=== PATIENT | female | born 1930 | race Caucasian/White ===

== ENCOUNTER → 2016-08-01 | Outpatient (CLI) | payer MEDICARE ==
[~2016-08-01] MED LIST: DOXA1 PO; DOXA1TAB35 PO; EYECAP; FERR325T PO; HYDR-3516 PO; LISI40TA PO; MEGE20TA PO; METO50TA PO; PRESCAP5 PO; RIVA15 PO; SIMV80TA PO; ZOCO80TA PO
[2016-08-01 13:10] LABS: BACTERIA, URINE RARE /hpf; BLOOD, URINE NEG (NEG); GLUCOSE,URINE NEG (NEG); HEMATOCRIT 24.8 % (35.0-46.0); KETONE, URINE NEG (NEG); MEAN CELL VOLUME 82.4 FL (80.0-100.0); MEAN CORPUSCULAR HEMOGLOBIN 28.4 PG (27.0-34.0); MEAN CORPUSCULAR HGB CONC 34.4 % (32.0-36.0); MUCUS URINE FEW /lpf (OCC); NITRITE,URINE NEG (NEG); PLATELET COUNT 263 TH/MM3 (150-450); RED BLOOD COUNT 3.01 MIL/MM3 (4.00-5.30); RED CELL DISTRIBUTION WIDTH 16.3 % (11.6-17.2); REVIEW FLAG FINAL; SQUAMOUS EPITHELIAL CELL URINE 5 /hpf (0-5); TRANSITIONAL EPI CELLS, URINE 1 /hpf; URINE COLOR COLORLESS (YELLW/STRAW); WHITE BLOOD COUNT 6.5 TH/MM3 (4.0-11.0)
[2016-08-01 13:19] LABS: MICRO ALBUMIN RANDOM URINE RAW 6.8 MG/L (0.0-30.0)
[2016-08-01 13:50] LABS: BLOOD UREA NITROGEN 15 MG/DL (7-18); GLOMERULAR FILTRATION RATE 60 ML/MIN (>89); GLUCOSE,FASTING 133 MG/DL (74-99)
[2016-08-01 13:51] LABS: ALT (GPT) 11 U/L (10-53); ANION GAP 9 MEQ/L (5-15); AST (GOT) 12 U/L (15-37); BICARBONATE 24.2 MEQ/L (21.0-32.0); CHLORIDE 103 MEQ/L (98-107); POTASSIUM 4.5 MEQ/L (3.5-5.1); SODIUM (NA) 136 MEQ/L (136-145)
[2016-08-01 14:00] LABS: ALKALINE PHOSPHATASE 81 U/L (45-117); HDL CHOLESTEROL 50.6 MG/DL (40.0-60.0); LDL CHOLESTEROL 37 MG/DL (0-99); LDL CHOLESTEROL DIRECT 58 MG/DL (0-99); TOTAL BILIRUBIN ADULT 0.3 MG/DL (0.2-1.0)
[2016-08-01 16:17] LABS: HEMOGLOBIN A1a 0.7 %; HEMOGLOBIN A1b 0.8 %; HEMOGLOBIN Ao 84.8 %; HEMOGLOBIN F 0.9 %; HEMOGLOBIN LA1C 2.1 %; HEMOGLOBIN P3 3.9 %
== END ==
LOC: PLAB 07:51
PROVIDERS: ATTEND Family Medicine
DX: E11.9 Type 2 diabetes mellitus without complications (principal); E78.2 Mixed hyperlipidemia; I10 Essential (primary) hypertension; I65.29 Occlusion and stenosis of unspecified carotid artery; R73.01 Impaired fasting glucose; R53.83 Other fatigue
CPT/HCPCS: 36415; 80053; 80061; 81001; 82043; 83036; 83721; 84443; 85027

== ENCOUNTER 2016-08-07 14:08 | Inpatient (IN) | payer MEDICARE ==
[2016-08-07] VITALS (7 sets, daily range): BP systolic 93–131; BP diastolic 50–79; PULSE 77–102; RESP 16–20; TEMP 97.4–98.6; O2SAT 93–100
[~2016-08-07] VITALS: Ht 162.6 cm; Wt 80.7 kg
[~2016-08-07 14:08] MED LIST changes: -DOXA1TAB35 PO; -FERR325T PO; -HYDR-3516 PO; -MEGE20TA PO; -PRESCAP5 PO; -SIMV80TA PO
[2016-08-07] MEDS ORDERED: SODIUM CHLORIDE 0.9% FLUSH 5 ML FLUSH IVF PRN (14:30)
[2016-08-07] MEDS ORDERED: PANTOPRAZOLE INJ 80 MG in SODIUM CHLORIDE 0.9% INJ 35 ML IV ONE (14:30)
--- NOTE | 2016-08-07 14:32 | PD ---
HPI Chief Complaint: Abnormal Results Time Seen by Provider: 14:21 Travel History International Travel<30 days: No Contact w/Intl Traveler<30days: No Traveled to known affect area: No History of Present Illness HPI This is an 85-year-old female who presents to the emergency department with fatigue and generalized weakness that's been going on for several weeks, constant, worsening associated with difficulty with exertion and some shortness of breath. Her doctor noticed that she was pale and obtained outpatient labs. Her hemoglobin was 8.5. She does say she intermittently has some dark stools. She is not on any blood thinners. She had a colonoscopy 20 years ago. PFSH Past Medical History Cancer: Yes (MELANOMA RIGHT HEEL, LUNG CA) Cardiovascular Problems: No Diabetes: Yes (NO MEDS) Endocrine: No Genitourinary: No Hepatitis: No Hiatal Hernia: No Hypertension: Yes Immune Disorder: No Musculoskeletal: Yes (ARTHRITIS) Neurologic: Yes (NECK PAIN) Psychiatric: No Reproductive: No Respiratory: No Thyroid Disease: No Past Surgical History Abdominal Surgery: Yes (CHOLECYCTECTOMY, APPENDECTOMY) AICD: No Appendectomy: Yes Body Medical Devices: NECK HARDWARE Gynecologic Surgery: Yes (HYSTERECTOMY) Hysterectomy: Yes Joint Replacement: No Pacemaker: No Other Surgery: Yes (SKIN CA REMOVED) Social History Alcohol Use: No Tobacco Use: No (QUIT 28 YEARS AGO ) Substance Use: No Allergies-Medications (Allergen,Severity, Reaction): Coded Allergies: Lortab (Verified Allergy, Severe, NAUSEA/VOMITING, 08/07/16) Penicillin (Verified Allergy, Severe, Hives, 08/07/16) Sulfa (Verified Allergy, Severe, Itching, 08/07/16) Benadryl (Verified Allergy, Unknown, "I JUST FEEL WEIRD", 08/07/16) Reported Meds & Prescriptions Reported Meds & Active Scripts Active Reported Preservision Areds 2 (Multiple Vitamins W/ Minerals) 1 Cap 1 Cap PO BID Simvastatin 80 Mg Tab 80 Mg PO DAILY Metoprolol Tartrate 50 Mg Tab 50 Mg PO DAILY Lisinopril 40 Mg Tab 40 Mg PO BID Doxazosin (Doxazosin Mesylate) 2 Mg Tab 2 Mg PO BID Review of Systems Except as stated in HPI: all other systems reviewed are Neg Physical Exam Narrative GENERAL:Well appearing, no acute distress SKIN: Warm and dry. HEAD: Atraumatic. Normocephalic. EYES: Pupils equal and round. No injection or drainage. Pale sclera. ENT: Moist mucous membranes NECK: Trachea midline. CARDIOVASCULAR: Regular rate and rhythm. No murmur appreciated. RESPIRATORY: Clear to auscultation. Breath sounds equal bilaterally. GASTROINTESTINAL: Abdomen soft, non-tender, nondistended. MUSCULOSKELETAL: No obvious deformities. NEUROLOGICAL: Awake and alert. No obvious cranial nerve deficits. Moving all extremities. PSYCHIATRIC: Appropriate mood and affect; insight and judgment normal. Data Data Last Documented VS Vital Signs Date Time Temp Pulse Resp B/P Pulse Ox O2 Delivery O2 Flow Rate FiO2 08/07/16 14:38 131/69 08/07/16 14:37 98 Room Air 08/07/16 14:33 89 08/07/16 14:12 97.4 16 Orders Complete Blood Count With Diff (08/07/16 14:30) Comprehensive Metabolic Panel (08/07/16 14:30) Prothrombin Time / Inr (Pt) (08/07/16 14:30) Act Partial Throm Time (Ptt) (08/07/16 14:30) Type And Screen (08/07/16 14:30) Ecg Monitoring (08/07/16 14:30) Iv Access Insert/Monitor (08/07/16 14:30) Oximetry (08/07/16 14:30) Sodium Chloride 0.9% Flush (Ns Flush) (08/07/16 14:30) Pantoprazole Inj (Protonix Inj) (08/07/16 14:30) Pantoprazole Inj (Protonix Inj) (08/07/16 14:30) Labs Laboratory Tests Test 08/07/16 14:40 White Blood Count 8.4 TH/MM3 Red Blood Count 2.72 MIL/MM3 Hemoglobin 7.4 GM/DL Hematocrit 22.8 % Mean Corpuscular Volume 83.9 FL Mean Corpuscular Hemoglobin 27.2 PG Mean Corpuscular Hemoglobin 32.4 % Concent Red Cell Distribution Width 17.2 % Platelet Count 316 TH/MM3 Mean Platelet Volume 6.4 FL Neutrophils (%) (Auto) 77.5 % Lymphocytes (%) (Auto) 14.2 % Monocytes (%) (Auto) 5.1 % Eosinophils (%) (Auto) 1.0 % Basophils (%) (Auto) 2.2 % Neutrophils # (Auto) 6.5 TH/MM3 Lymphocytes # (Auto) 1.2 TH/MM3 Monocytes # (Auto) 0.4 TH/MM3 Eosinophils # (Auto) 0.1 TH/MM3 Basophils # (Auto) 0.2 TH/MM3 CBC Comment DIFF FINAL Differential Comment Prothrombin Time 10.5 SEC Prothromb Time International 1.0 RATIO Ratio Activated Partial 28.8 SEC Thromboplast Time Sodium Level 137 MEQ/L Potassium Level 4.7 MEQ/L Chloride Level 101 MEQ/L Carbon Dioxide Level 25.9 MEQ/L Anion Gap 10 MEQ/L Blood Urea Nitrogen 24 MG/DL Creatinine 0.92 MG/DL Estimat Glomerular Filtration 58 ML/MIN Rate Random Glucose 133 MG/DL Calcium Level 8.8 MG/DL Total Bilirubin 0.4 MG/DL Aspartate Amino Transf 11 U/L (AST/SGOT) Alanine Aminotransferase 13 U/L (ALT/SGPT) Alkaline Phosphatase 90 U/L Total Protein 7.2 GM/DL Albumin 3.1 GM/DL MDM Medical Decision Making Medical Screen Exam Complete: Yes Emergency Medical Condition: Yes Interpretation(s) Afebrile, no tachycardia, normotensive Hemoglobin is 7.4 Electrolytes are reassuring Differential Diagnosis Upper GI bleed, lower GI bleed, anemia Narrative Course This is an 85-year-old female who presents to the emergency department with generalized weakness found by her primary care physician to have a hemoglobin of 8.5. Here in the emergency department her hemoglobin is 7.4. She is placed on a monitor and an IV was established. Electrolytes are reassuring. She was Hemoccult positive. She is not on any blood thinners. Was placed on pantoprazole infusion and will be admitted for GI consultation. HemaPrompt Point of Care Internal Pos. & Neg. Controls: Passed Fecal Specimen Occult Blood: Positive Diagnosis Primary Impression: GI bleed Qualified Code: K92.2 - Gastrointestinal hemorrhage, unspecified gastrointestinal hemorrhage type Admitting Information Admitting Physician Requests: Admit Lizette Alvarez MD Aug 07, 2016 14:32
[2016-08-07] MEDS ORDERED: METO50TA PO (14:40)
[2016-08-07] MEDS ORDERED: LISI40TA PO (14:40)
[2016-08-07] MEDS ORDERED: PRESCAP5 PO (14:40)
[2016-08-07] MEDS ORDERED: DOXA1TAB35 PO (14:40)
[2016-08-07] MEDS ORDERED: SIMV80TA PO (14:40)
[2016-08-07 14:55] LABS: AUTOMATED NEUTROPHIL # 6.5 TH/MM3 (1.8-7.7); BASOPHIL # 0.2 TH/MM3 (0-0.2); BASOPHIL % 2.2 % (0.0-2.0); EOSINOPHIL # 0.1 TH/MM3 (0-0.4); HEMATOCRIT 22.8 % (35.0-46.0); LYMPH % 14.2 % (9.0-44.0); LYMPHOCYTE # 1.2 TH/MM3 (1.0-4.8); MEAN CELL VOLUME 83.9 FL (80.0-100.0); MEAN CORPUSCULAR HEMOGLOBIN 27.2 PG (27.0-34.0); MEAN CORPUSCULAR HGB CONC 32.4 % (32.0-36.0); MONO % 5.1 % (0.0-8.0); NEUT % 77.5 % (16.0-70.0); PLATELET COUNT 316 TH/MM3 (150-450); RED BLOOD COUNT 2.72 MIL/MM3 (4.00-5.30); RED CELL DISTRIBUTION WIDTH 17.2 % (11.6-17.2); WHITE BLOOD COUNT 8.4 TH/MM3 (4.0-11.0)
[2016-08-07 14:57] LABS: HEMO FLAGS DIFF FINAL
[2016-08-07 14:58] LABS: CHLORIDE 101 MEQ/L (98-107); POTASSIUM 4.7 MEQ/L (3.5-5.1); SODIUM (NA) 137 MEQ/L (136-145)
[2016-08-07 15:02] LABS: ANION GAP 10 MEQ/L (5-15); BICARBONATE 25.9 MEQ/L (21.0-32.0); BLOOD UREA NITROGEN 24 MG/DL (7-18)
[2016-08-07 15:03] LABS: APTT (PATIENT) 28.8 SEC (24.3-30.1); PROTHROMBIN TIME - PATIENT 10.5 SEC (9.8-11.6)
[2016-08-07 15:05] LABS: ALT (GPT) 13 U/L (10-53); AST (GOT) 11 U/L (15-37); GLOMERULAR FILTRATION RATE 58 ML/MIN (>89)
[2016-08-07 15:07] LABS: TOTAL BILIRUBIN ADULT 0.4 MG/DL (0.2-1.0)
[2016-08-07 15:08] LABS: ALKALINE PHOSPHATASE 90 U/L (45-117)
[2016-08-07] MEDS: PANTOPRAZOLE INJ 80 MG in SODIUM CHLORIDE 0.9% INJ 100 ML IV SCH ×2 (15:23→23:58)
[2016-08-07] MEDS ORDERED: SODIUM CHLOR 0.9% 250 ML INJ 250 ML IV ONE (15:45)
[2016-08-07] MEDS ORDERED: ONDANSETRON HCL 4 MG/2 ML VIAL IVP PRN (15:45)
[2016-08-07] MEDS ORDERED: SODIUM CHLORIDE 0.9% FLUSH 5 ML FLUSH FLUSH PRN (15:45)
--- NOTE | 2016-08-07 16:24 | HHI.HP ---
cc: John Coyne MD [facility] Service [facility] Primary Care Physician John Coyne MD Admission Diagnosis gi bleed Diagnoses: (1) Blood loss anemia Diagnosis: Principal (2) Heme positive stool Diagnosis: Principal (3) Melena Diagnosis: Principal (4) Hypertension Diagnosis: Secondary (5) Hyperlipidemia Diagnosis: Secondary Chief Complaint: Patient sent here by primary medical doctor because of abnormal laboratory studies Travel History International Travel<30 Days: No Contact w/Intl Traveler <30 Da: No Traveled to Known Affected Are: No History of Present Illness 85-year-old female with known history of hypertension, hyperlipidemia , history lung cancer, history of melanoma, history DVT in the right lower extremity presented to the hospital at the request of her primary medical doctor Dr. Coyne because abnormal laboratory studies. Patient went in for her three-month evaluation and laboratory studies. Patient was notified by her primary medical doctor that her hemoglobin was low so he sent her to the hospital for evaluation. Patient indicates that she has had increased weakness , shortness of breath, dyspnea on exertion for the last 2 weeks with worsening. She noticed a week ago she started having dark color stools. Patient states that she has not had a colonoscopy in over 5 years. Patient had workup done in noticed to have hemoglobin of 7.4 MRSA department. Hemoccult was performed which is positive. Recommended by ER physician the patient be admitted for further evaluation management. Review of Systems Constitutional: DENIES: Diaphoretic episodes, Fatigue, Fever, Weight gain, Weight loss, Chills, Dizziness, Change in appetite, Night Sweats Eyes: DENIES: Blurred vision, Diplopia, Eye inflammation, Eye pain, Vision loss , Double Vision Ears, nose, mouth, throat: COMPLAINS OF: Hoarseness, DENIES: Vertigo, Nasal discharge, Throat pain, Ear Pain, Running Nose, Sinus Pain Cardiovascular: COMPLAINS OF: Lower Extremity Edema (chronic right lower extremity), DENIES: Chest pain, Palpitations, Syncope, Dyspnea on Exertion, Orthopnea Gastrointestinal: COMPLAINS OF: Black stools, DENIES: Abdominal pain, Bloody stools, Constipation, Diarrhea, Nausea, Vomiting, Difficulty Swallowing, Anorexia Neurologic: DENIES: Abnormal gait, Headache, Localized weakness, Paresthesias, Seizures, Speech Problems, Tremor, Poor Balance Past Family Social History Past Medical History Hypertension Hyperlipidemia History of lung cancer History melanoma History DVT in right lower extremity Past Surgical History Appendectomy Hysterectomy Cataract surgery Cervical fusion Left lower lung lobectomy Right heel melanoma removal Lymph node removal from right groin Reported Medications Reported Meds & Active Scripts Active Reported Preservision Areds 2 (Multiple Vitamins W/ Minerals) 1 Cap 1 Cap PO BID Simvastatin 80 Mg Tab 80 Mg PO DAILY Metoprolol Tartrate 50 Mg Tab 50 Mg PO DAILY Lisinopril 40 Mg Tab 40 Mg PO BID Doxazosin (Doxazosin Mesylate) 2 Mg Tab 2 Mg PO BID Allergies: Coded Allergies: Lortab (Verified Allergy, Severe, NAUSEA/VOMITING, 08/07/16) Penicillin (Verified Allergy, Severe, Hives, 08/07/16) Sulfa (Verified Allergy, Severe, Itching, 08/07/16) Benadryl (Verified Allergy, Unknown, "I JUST FEEL WEIRD", 08/07/16) Family History Prevention if you for mother having diabetes, Brothers with heart disease Social History Patient denies any tobacco or illicit drugs. She does drink May be one beer whenever she has pizza every 3 months. Physical Exam Vital Signs Vital Signs Date Time Temp Pulse Resp B/P Pulse Ox O2 Delivery O2 Flow Rate FiO2 08/07/16 15:44 88 17 119/60 93 Room Air 08/07/16 14:38 131/69 08/07/16 14:37 98 Room Air 08/07/16 14:33 89 89 Room Air 08/07/16 14:12 97.4 90 16 93/50 99 Physical Exam GENERAL: Well-developed, well-nourished, in no acute distress. alert and orientated HEENT: Head is normocephalic without any lesions or masses noted. Facial features are symmetric. Eyes: Pupils equal round reactive to light. Extraocular muscles are intact. Conjunctivae were clear. Oropharyngeal: Pharynx without any erythema edema. Tongue is midline without deviation. Buccal mucosa is moist without any masses or lesions NECK: Supple without any masses. Trachea midline no deviation. No JVD, no bruits are appreciated CARDIAC: Regular rhythm, regular rate. S1/S2 are heard. No murmurs gallops or rubs. LUNGS: Clear to auscultation bilaterally. No wheeze, rhonchi or rales. No use of accessory muscles on inspiration or expiration. ABDOMEN: Soft, nontender. Nondistended. Bowel sounds heard in all 4 quadrants. No organomegaly or masses. Negative rebound, negative guarding EXTREMITIES: 1+ pitting edema right lower extremity, pulses are equal bilaterally. No cyanosis or clubbing NEUROLOGY: Mood and affect appear appropriate. Cranial nerves II through XII grossly intact. Muscle strength 5/5 in upper and lower extremities bilaterally. Deep tendon reflexes are 2+ in upper and lower extremities bilaterally. Laboratory Laboratory Tests Test 08/07/16 14:40 White Blood Count 8.4 Red Blood Count 2.72 Hemoglobin 7.4 Hematocrit 22.8 Mean Corpuscular Volume 83.9 Mean Corpuscular Hemoglobin 27.2 Mean Corpuscular Hemoglobin 32.4 Concent Red Cell Distribution Width 17.2 Platelet Count 316 Mean Platelet Volume 6.4 Neutrophils (%) (Auto) 77.5 Lymphocytes (%) (Auto) 14.2 Monocytes (%) (Auto) 5.1 Eosinophils (%) (Auto) 1.0 Basophils (%) (Auto) 2.2 Neutrophils # (Auto) 6.5 Lymphocytes # (Auto) 1.2 Monocytes # (Auto) 0.4 Eosinophils # (Auto) 0.1 Basophils # (Auto) 0.2 CBC Comment DIFF FINAL Differential Comment Prothrombin Time 10.5 Prothromb Time International 1.0 Ratio Activated Partial 28.8 Thromboplast Time Sodium Level 137 Potassium Level 4.7 Chloride Level 101 Carbon Dioxide Level 25.9 Anion Gap 10 Blood Urea Nitrogen 24 Creatinine 0.92 Estimat Glomerular Filtration 58 Rate Random Glucose 133 Calcium Level 8.8 Total Bilirubin 0.4 Aspartate Amino Transf 11 (AST/SGOT) Alanine Aminotransferase 13 (ALT/SGPT) Alkaline Phosphatase 90 Total Protein 7.2 Albumin 3.1 Result Diagram: 08/08/16 0551 08/08/16 0551 Assessment and Plan Assessment and Plan Acute blood loss anemia with heme positive stool, symptomatic with shortness of breath, dyspnea, weakness Patient set up for transfusion 1 unit of packed red blood cells Continue Protonix IV Consulted GI for further recommendations. Recommending at this time prepping patient for panendoscopy. Hypertension, hyperlipidemia Continue follow blood pressure, mildly low at this time Resume medications with hold parameters. Diabetes, diet controlled Resume diabetic diet when cleared by GI DVT prevention Sequential compression devices, avoid chemical prophylaxis secondary to GI bleed Written by Terry Lim PA-C, acting as scribe for Dr. Powers on 08/07/16 at 1600. The documentation accurately reflects the work and decisions performed face-to- face by Dr. Powers on 08/07/16 at 1600. Physician Certification 2 Midnight Certification Type: Admission for Inpatient Services Order for Inpatient Services The services are ordered in accordance with Medicare regulations or non- Medicare payer requirements, as applicable. In the case of services not specified as inpatient-only, they are appropriately provided as inpatient services in accordance with the 2-midnight benchmark. Estimated LOS (days): 2 days is the estimated time the patient will need to remain in the hospital, assuming treatment plan goals are met and no additional complications. Post-Hospital Plan: Not yet determined Medical Decision Making Impression and Plan The exam, history, and the medical decision-making described in the above note were completed with my assistance as the dictating practitioner. I attest that I had a [id number] encounter with the patient on the same day, and personally performed all of the history, exam, or medical decision making. I reviewed and agree with the plan. Discussed with patient bedside and PATIENT ACCOUNT LIAISON and ER M.D. Problem Qualifiers (1) Hypertension: Qualified Code: I15.9 - Secondary hypertension (2) Hyperlipidemia: Qualified Code: E78.5 - Hyperlipidemia, unspecified hyperlipidemia type Terry Lim Aug 07, 2016 16:24 Latanya Powers MD Aug 08, 2016 09:10
[2016-08-07] MEDS ORDERED: PEG (High)/E-LYTE SOLN 4000 ML BTL PO ONE (17:00)
[2016-08-07] MEDS: SODIUM CHLOR 0.9% 1000 ML INJ 1,000 ML IV SCH (17:15)
[2016-08-07] MEDS: PRAVASTATIN SOD 40 MG TAB PO SCH (20:37)
[2016-08-07] MEDS: SODIUM CHLORIDE 0.9% FLUSH 5 ML FLUSH FLUSH SCH (20:37)
[2016-08-08] VITALS (7 sets, daily range): BP systolic 96–142; BP diastolic 53–117; PULSE 86–108; RESP 18–20; TEMP 97.7–98.7; O2SAT 97–100
[2016-08-08] MEDS: SODIUM CHLOR 0.9% 1000 ML INJ 1,000 ML IV SCH ×2 (05:46→18:26)
[2016-08-08 06:42] LABS: AUTOMATED NEUTROPHIL # 4.7 TH/MM3 (1.8-7.7); BASOPHIL % 0.2 % (0.0-2.0); EOSINOPHIL # 0.1 TH/MM3 (0-0.4); EOSINOPHIL % 0.9 % (0.0-4.0); HEMATOCRIT 22.1 % (35.0-46.0); HEMO FLAGS DIFF FINAL; LYMPH % 15.7 % (9.0-44.0); MEAN CELL VOLUME 83.2 FL (80.0-100.0); MEAN CORPUSCULAR HGB CONC 32.5 % (32.0-36.0); NEUT % 77.2 % (16.0-70.0); PLATELET COUNT 259 TH/MM3 (150-450); RED BLOOD COUNT 2.66 MIL/MM3 (4.00-5.30); RED CELL DISTRIBUTION WIDTH 15.8 % (11.6-17.2); WHITE BLOOD COUNT 6.2 TH/MM3 (4.0-11.0)
[2016-08-08 07:01] LABS: BICARBONATE 26.2 MEQ/L (21.0-32.0); POTASSIUM 3.8 MEQ/L (3.5-5.1)
[2016-08-08] MEDS ORDERED: PROPOFOL 200 MG/20 ML AMP IV ONE (07:20)
[2016-08-08] MEDS: LISINOPRIL 20 MG TAB PO SCH ×2 (09:40→21:00)
[2016-08-08] MEDS: SODIUM CHLORIDE 0.9% FLUSH 5 ML FLUSH FLUSH SCH ×2 (09:41→21:45)
[2016-08-08 12:13] LABS: HEMATOCRIT 22.1 % (35.0-46.0); REVIEW FLAG FINAL
[2016-08-08] MEDS ORDERED: FUROSEMIDE 20 MG/2 ML VIAL IV ONE (13:15)
[2016-08-08] MEDS ORDERED: ACETAMINOPHEN 325 MG TAB PO PRN (13:15)
[2016-08-08] MEDS ORDERED: SODIUM CHLOR 0.9% 250 ML INJ 250 ML IV ONE (13:15)
--- NOTE | 2016-08-08 14:00 | HHI.PR ---
Subjective Remarks Patient seen and evaluated in follow-up for anemia likely secondary to GI blood loss. Patient doing well today after endoscopy. Hemoglobin is still low after 1 unit packed red blood cells. Patient's symptoms however her greatly improved. She is no longer dizzy or lightheaded and does not feel fatigued. Objective Vitals Vital Signs Date Time Temp Pulse Resp B/P Pulse Ox O2 Delivery O2 Flow Rate FiO2 08/08/16 12:00 98.0 101 20 110/53 100 08/08/16 08:15 91 16 106/49 98 08/08/16 08:05 106/53 08/08/16 07:53 98.7 87 18 95/43 100 08/08/16 06:34 98.3 108 20 133/66 98 08/08/16 00:00 98.3 86 20 96/67 97 08/07/16 20:20 98.6 93 20 116/55 100 08/07/16 20:00 98.2 102 20 124/62 100 08/07/16 16:41 77 17 115/79 93 Room Air 08/07/16 15:44 88 17 119/60 93 Room Air 08/07/16 14:38 131/69 08/07/16 14:37 98 Room Air 08/07/16 14:33 89 89 Room Air 08/07/16 14:12 97.4 90 16 93/50 99 I/O 08/07/16 08/07/16 08/07/16 08/08/16 08/08/16 08/08/16 07:00 15:00 23:00 07:00 15:00 23:00 Intake Total 4575 ml 813 ml 300 ml Balance 4575 ml 813 ml 300 ml Intake Oral 2000 ml Oral Supplement 2000 ml IV Total 375 ml 714 ml Packed Cells 200 ml 99 ml Other 300 ml # Voids 4 2 # Bowel Movements 8 2 Result Diagram: 08/08/16 1150 08/08/16 0551 Objective Remarks GENERAL: This is a well-nourished, well-developed patient, in no apparent distress. CARDIOVASCULAR: Regular rate and rhythm without murmurs, gallops, or rubs. RESPIRATORY: Clear to auscultation. Breath sounds equal bilaterally. No wheezes , rales, or rhonchi. GASTROINTESTINAL: Abdomen soft, non-tender, nondistended. Normal active bowel sounds MUSCULOSKELETAL: Extremities without clubbing, cyanosis, or edema. NEURO: Alert & Oriented x4 to person, place, time, situation. Moves all ext x4 Procedures Upper and lower endoscopy: Biopsy, removal of polyp A/P Problem List: (1) Blood loss anemia ICD Code: D50.0 Status: Acute Plan: Likely acute GI losses, will need one more unit of packed red blood cells. Recheck in a.m. Status post upper and lower endoscopy with biopsy of a polyp. No further bleeding as per GI Advance diet (2) Hypertension ICD Code: I10 Status: Acute Plan: Currently controlled on home meds and a bit low (likely due to anemia). Lisinopril resumed, we'll start metoprolol tomorrow if patient tolerates (3) Hyperlipidemia ICD Code: E78.5 Status: Acute Plan: Continue statin Discharge Planning Pending hemoglobin likely discharge in a.m. Problem Qualifiers (1) Hypertension: Qualified Code: I15.9 - Secondary hypertension (2) Hyperlipidemia: Qualified Code: E78.5 - Hyperlipidemia, unspecified hyperlipidemia type Latanya Powers MD Aug 08, 2016 14:00
[2016-08-08] MEDS: PANTOPRAZOLE INJ 80 MG in SODIUM CHLORIDE 0.9% INJ 100 ML IV SCH ×2 (18:26→21:45)
--- NOTE | 2016-08-08 20:24 | MB ---
cc: ILDEFONSO ESPINOZA M.D. DATE OF CONSULTATION 08/08/2016 DATE OF 1930 REASON FOR CONSULTATION Anemia. HISTORY OF THE PRESENT ILLNESS Thank you for the consultation. A pleasant 85-year-old lady who has multiple medical issues. The patient was told by her primary care physician to go to the hospital because her hemoglobin was 7.4 on routine labs. The patient stated that she noticed some dark colored stool about a week ago and general weakness, some shortness of breath and dyspnea on exertion. She denied екатерина blood. No hematemesis. No hematochezia. She had colonoscopy at least four years ago, not sure what was the findings. She was sent to the emergency room because of that. Her symptom is not related to food and gradual. PAST MEDICAL HISTORY Significant for: 1. Hyperlipidemia. 2. History of lung cancer. 3. Melanoma. 4. DVT in the lower right lower extremity. 5. Hypertension. PAST SURGICAL HISTORY 1. Hysterectomy. 2. Cataract surgery. 3. Left lower lung lobectomy. 4. Appendectomy. 5. Cervical fusion. 6. Right heel melanoma removal. REVIEW OF SYSTEMS All 12-point negative except HPI. MEDICATIONS Reviewed in the chart. ALLERGIES MULTIPLE INCLUDING PENICILLIN, SULFA, BENADRYL, LORTAB. FAMILY HISTORY Significant for heart disease and diabetes. SOCIAL HISTORY No tobacco, drug or alcohol. PHYSICAL EXAMINATION GENERAL: Alert and oriented in no acute distress at this time. VITAL SIGNS: Stable. HEENT: Pupils round and reactive to light. NECK: Supple. CHEST: Clear to auscultation and percussion. CARDIOVASCULAR: Regular rate and rhythm. ABDOMEN: Soft. Nondistended. No hepatosplenomegaly. Positive bowel sounds. EXTREMITIES: +1 lower extremity edema. NEUROLOGICAL: Intact with normal range of motion. LABORATORY DATA White count 8.4, hemoglobin 7.4, platelet 316. Liver function test are normal. Albumin 3.1. ASSESSMENT/PLAN A pleasant 85-year-old lady who has anemia, could be acute on chronic with black stool but gradual increase of shortness of breath. Her last colonoscopy was 5 years ago. I discussed with the patient doing upper endoscopy and colonoscopy. We discussed the procedure, complications. She agreed to have it done. This will be done today. The patient received packed RBC and we will monitor her hemoglobin. Further plan depends on the findings on endoscopy. MD ABI Rivera /5:55 PM /8:13 PM
[2016-08-08] MEDS: DOXAZOSIN MESYLATE 2 MG TAB PO SCH (21:00)
[2016-08-08] MEDS: PRAVASTATIN SOD 40 MG TAB PO SCH (21:42)
[2016-08-09] VITALS: BP 106/58; PULSE 87; RESP 18; TEMP 99.2; O2SAT 99
[2016-08-09] MEDS: SODIUM CHLOR 0.9% 1000 ML INJ 1,000 ML IV SCH (06:03)
[2016-08-09 06:09] LABS: AUTOMATED NEUTROPHIL # 5.7 TH/MM3 (1.8-7.7); BASOPHIL % 0.4 % (0.0-2.0); EOSINOPHIL # 0.1 TH/MM3 (0-0.4); HEMATOCRIT 24.9 % (35.0-46.0); HEMO FLAGS DIFF FINAL; LYMPH % 11.9 % (9.0-44.0); LYMPHOCYTE # 0.8 TH/MM3 (1.0-4.8); MEAN CELL VOLUME 82.8 FL (80.0-100.0); MEAN CORPUSCULAR HEMOGLOBIN 27.8 PG (27.0-34.0); MEAN CORPUSCULAR HGB CONC 33.5 % (32.0-36.0); MONO % 6.7 % (0.0-8.0); PLATELET COUNT 256 TH/MM3 (150-450); RED CELL DISTRIBUTION WIDTH 15.5 % (11.6-17.2); WHITE BLOOD COUNT 7.1 TH/MM3 (4.0-11.0)
[2016-08-09 08:00] VITALS: BP 120/64; PULSE 98; RESP 20; TEMP 97.9; O2SAT 97
[2016-08-09] MEDS: LISINOPRIL 20 MG TAB PO SCH ×2 (08:10→20:50)
[2016-08-09] MEDS: DOXAZOSIN MESYLATE 2 MG TAB PO SCH (08:10)
[2016-08-09] MEDS: METOPROLOL TARTRATE 50 MG TAB PO SCH (08:10)
[2016-08-09] MEDS: SODIUM CHLORIDE 0.9% FLUSH 5 ML FLUSH FLUSH SCH ×2 (08:12→20:51)
[2016-08-09] MEDS: PANTOPRAZOLE INJ 80 MG in SODIUM CHLORIDE 0.9% INJ 100 ML IV SCH (09:23)
--- NOTE | 2016-08-09 10:36 | HHI.PR ---
Subjective Remarks Patient seen and examined today with Dr. King. Patient states that she had another black stool at 9 AM this morning. Patient is concerned at this time and does not feel like she is safe to go home. Objective Vitals Vital Signs Date Time Temp Pulse Resp B/P Pulse Ox O2 Delivery O2 Flow Rate FiO2 08/09/16 08:00 97.9 98 20 120/64 97 08/09/16 00:00 99.2 87 18 106/58 99 08/08/16 20:45 97.7 96 18 107/54 98 08/08/16 20:00 98.3 105 20 100/55 97 08/08/16 17:39 98.7 98 18 142/117 98 08/08/16 16:00 98.1 105 20 142/78 98 08/08/16 12:00 98.0 101 20 110/53 100 I/O 08/08/16 08/08/16 08/08/16 08/09/16 08/09/16 08/09/16 07:00 15:00 23:00 07:00 15:00 23:00 Intake Total 813 ml 1050 ml 2040 ml 1000 ml Output Total 950 ml Balance 813 ml 100 ml 2040 ml 1000 ml Intake Oral 750 ml 480 ml 240 ml IV Total 714 ml 1183 ml 760 ml Packed Cells 99 ml 377 ml Other 300 ml Output Urine Total 950 ml # Voids 2 4 3 # Bowel Movements 2 0 0 Result Diagram: 08/09/16 0540 08/08/16 0551 Objective Remarks GENERAL: Well-developed, well-nourished, in no acute distress. alert and orientated HEENT: Head is normocephalic without any lesions or masses noted. Facial features are symmetric. Eyes: Extraocular muscles are intact. Conjunctivae were clear. NECK: Supple without any masses. Trachea midline no deviation. No JVD, CARDIAC: Regular rhythm, regular rate. S1/S2 are heard. No murmurs gallops or rubs. LUNGS: Clear to auscultation bilaterally. No wheeze, rhonchi or rales. No use of accessory muscles on inspiration or expiration. ABDOMEN: Soft, nontender. Nondistended. Bowel sounds heard in all 4 quadrants. No organomegaly or masses. Negative rebound, negative guarding EXTREMITIES: No edema, pulses are equal bilaterally. No cyanosis or clubbing NEUROLOGY: Mood and affect appear appropriate. Cranial nerves II through XII grossly intact. Moving all extremities, speech is clear Procedures Upper and lower endoscopy: Biopsy, removal of polyp Urinary Catheter: No Vascular Central Line Catheter: No A/P Assessment and Plan Acute blood loss anemia with heme positive stool, symptomatic with shortness of breath, dyspnea, weakness: Patient status post 2 unit of packed red blood cells, patient continued on Protonix IV, will change to by mouth Protonix. Patient has undergone endoscopy which did show a polyp with removal and hemorrhoid. Recommending outpatient pill endoscopy. GI following the patient. Patient did have another black stool this morning. Recommending continue monitoring for another 24 hours hemoglobin and hematocrit to confirm stability. Physical therapy evaluated patient and recommending the patient have home health care physical therapy Hypertension, hyperlipidemia: Continue follow blood pressure, mildly low at this time, Resume medications with hold parameters. Diabetes, diet controlled: Resumed diabetic diet DVT prevention: Sequential compression devices, avoid chemical prophylaxis secondary to GI bleed Written by Terry Lim PA-C, acting as scribe for Dr. King on 08/09/16 at 10:30. The documentation accurately reflects the work and decisions performed face-to- face by Dr. King on 08/09/16 at 10:30. Terry Lim Aug 09, 2016 10:36
--- NOTE | 2016-08-09 10:37 | HHI.FF ---
Face to Face Verification Diagnosis: (1) GI bleed (2) Generalized weakness Physical Therapy Order: Evaluate and Treat, Improve ambulation, Strength and gait training Home Health Nursing Order: Medical education Signs/symptoms of disease process Nursing assessment with vital signs I have seen patient Keli Santos on 08/09/16. My clinical findings support the need for the requested home health care services because: Deconditioned w/ increased weakness I certify that my clinical findings support that this patient is homebound because: Unsteady gait/balance Terry Lim Aug 09, 2016 10:37
[2016-08-09 12:00] VITALS: BP 106/52; PULSE 84; RESP 20; TEMP 97.2; O2SAT 98
--- NOTE | 2016-08-09 13:04 | MR ---
cc: ILDEFONSO ESPINOZA M.D. DATE 08/08/[address] Latanya Powers REASON FOR REFERRAL Anemia PROCEDURE After informing the patient about the procedure and complication, consent was signed. The patient was placed on her left lateral decubitus, adequate sedation was achieved by propofol, scope was placed in the mouth, advanced under video guidance to the second portion of the duodenum. The scope drawn back to the stomach. Retroflexion was performed and the scope drawn back without any immediate complication. After that, rectal exam was performed. The scope was placed in the rectum, advanced under video guidance to the cecum which was identified by the ileocecal valve and appendiceal orifice. The scope drawn back gradually with visualization of the colonic mucosa down to the rectum. Retroflexion was performed, then the scope drawn back without immediate complication. FINDINGS 1. Esophagus normal 2. Stomach normal 3. Duodenum normal 4. In the colon, three polyps in the ascending colon which were removed by a snare. 5. Small hemorrhoid. 6. Some stool may obscure the vision of a small lesion. 7. No sign of active bleeding. 8. No recent blood. 9. Bleeding possibly from AVM in the small bowel RECOMMENDATIONS 1. Follow-up biopsy. 2. Capsule endoscopy as an outpatient. 3. May feed the patient a regular diet. 4. If hemoglobin is stable, the patient can be discharged. 5. Follow up in the office in few weeks. MD LIBRADO Rivera/BRENT /5:53 PM /12:59 PM
[2016-08-09 15:53] VITALS: BP 93/52; PULSE 86; RESP 20; TEMP 98.6; O2SAT 98
[2016-08-09 16:05] LABS: HEMATOCRIT 24.3 % (35.0-46.0); REVIEW FLAG FINAL
[2016-08-09 18:09] LABS: TRANSFERRIN IRON PROFILE 160 MG/DL (200-360)
[2016-08-09 18:12] LABS: FERRITIN 348 NG/ML (8-252)
[2016-08-09 20:00] VITALS: BP 105/55; PULSE 82; RESP 20; TEMP 98.8; O2SAT 98
[2016-08-09] MEDS: PRAVASTATIN SOD 40 MG TAB PO SCH (20:50)
[2016-08-10] VITALS: BP 119/60; PULSE 92; RESP 20; TEMP 98.9; O2SAT 97
[2016-08-10 06:31] LABS: AUTOMATED NEUTROPHIL # 4.6 TH/MM3 (1.8-7.7); BASOPHIL # 0.1 TH/MM3 (0-0.2); EOSINOPHIL # 0.1 TH/MM3 (0-0.4); EOSINOPHIL % 1.5 % (0.0-4.0); HEMATOCRIT 26.9 % (35.0-46.0); LYMPH % 16.1 % (9.0-44.0); MEAN CELL VOLUME 83.4 FL (80.0-100.0); MEAN CORPUSCULAR HEMOGLOBIN 26.8 PG (27.0-34.0); MEAN CORPUSCULAR HGB CONC 32.1 % (32.0-36.0); MONO % 5.3 % (0.0-8.0); NEUT % 76.1 % (16.0-70.0); PLATELET COUNT 276 TH/MM3 (150-450); RED BLOOD COUNT 3.23 MIL/MM3 (4.00-5.30); RED CELL DISTRIBUTION WIDTH 15.5 % (11.6-17.2); WHITE BLOOD COUNT 6.1 TH/MM3 (4.0-11.0)
[2016-08-10 06:41] LABS: HEMO FLAGS DIFF FINAL
[2016-08-10 08:00] VITALS: BP 126/84; PULSE 103; RESP 20; TEMP 96.1; O2SAT 99
[2016-08-10] MEDS: METOPROLOL TARTRATE 50 MG TAB PO SCH (08:23)
[2016-08-10] MEDS: LISINOPRIL 20 MG TAB PO SCH (08:23)
[2016-08-10] MEDS: SODIUM CHLORIDE 0.9% FLUSH 5 ML FLUSH FLUSH SCH (08:24)
[2016-08-10] MEDS ORDERED: DOXAZOSIN MESYLATE 2 MG TAB PO SCH (09:00)
[2016-08-10] MEDS ORDERED: PANTOPRAZOLE SOD 40 MG DELAYED RELEASE TAB PO SCH (09:00)
[2016-08-10] MEDS ORDERED: FERR325T PO (09:46)
--- NOTE | 2016-08-10 09:50 | HHI.DS ---
cc: John Coyne MD Discharge Summary Admission Date Aug 07, 2016 at 15:42 Discharge Date: Aug 10, 2016 Admitting Diagnosis gi bleed (1) Blood loss anemia ICD Code: D50.0 (2) Hypertension ICD Code: I10 (3) Hyperlipidemia ICD Code: E78.5 (4) GI bleed ICD Code: K92.2 (5) Generalized weakness ICD Code: R53.1 (6) Iron deficiency ICD Code: E61.1 Procedures Upper and lower endoscopy: Biopsy, removal of 3 colon polyps Brief History - From Admission 85-year-old female with known history of hypertension, hyperlipidemia , history lung cancer, history of melanoma, history DVT in the right lower extremity presented to the hospital at the request of her primary medical doctor Dr. Coyne because abnormal laboratory studies. Patient went in for her three-month evaluation and laboratory studies. Patient was notified by her primary medical doctor that her hemoglobin was low so he sent her to the hospital for evaluation. Patient indicates that she has had increased weakness , shortness of breath, dyspnea on exertion for the last 2 weeks with worsening. She noticed a week ago she started having dark color stools. Patient states that she has not had a colonoscopy in over 5 years. Patient had workup done in noticed to have hemoglobin of 7.4 in the emergency department. Hemoccult was performed which was positive. Recommended by ER physician the patient be admitted for further evaluation management. CBC/BMP: 08/10/16 0600 08/08/16 0551 Significant Findings Laboratory Tests Test 08/07/16 08/08/16 08/08/16 08/09/16 14:40 05:51 11:50 05:40 Red Blood Count 2.72 MIL/MM3 2.66 MIL/MM3 3.00 MIL/MM3 (4.00-5.30) (4.00-5.30) (4.00-5.30) Hemoglobin 7.4 GM/DL 7.2 GM/DL 7.4 GM/DL 8.3 GM/DL (11.6-15.3) (11.6-15.3) (11.6-15.3) (11.6-15.3) Hematocrit 22.8 % 22.1 % 22.1 % 24.9 % (35.0-46.0) (35.0-46.0) (35.0-46.0) (35.0-46.0) Mean Platelet Volume 6.4 FL 6.5 FL 6.4 FL (7.0-11.0) (7.0-11.0) (7.0-11.0) Neutrophils (%) (Auto) 77.5 % 77.2 % 80.0 % (16.0-70.0) (16.0-70.0) (16.0-70.0) Basophils (%) (Auto) 2.2 % (0.0-2.0) Blood Urea Nitrogen 24 MG/DL (7-18) Estimat Glomerular Filtration 58 ML/MIN (>89) 70 ML/MIN (>89) Rate Random Glucose 133 MG/DL (74-106) Aspartate Amino Transf 11 U/L (15-37) (AST/SGOT) Albumin 3.1 GM/DL (3.4-5.0) Calcium Level 8.2 MG/DL (8.5-10.1) Lymphocytes # (Auto) 0.8 TH/MM3 (1.0-4.8) Test 08/09/16 08/10/16 15:51 06:00 Hemoglobin 8.1 GM/DL 8.6 GM/DL (11.6-15.3) (11.6-15.3) Hematocrit 24.3 % 26.9 % (35.0-46.0) (35.0-46.0) Iron Level 25 MCG/DL (50-170) Total Iron Binding Capacity 224 MCG/DL (250-450) Percent Iron Saturation 11.2 % (20-50) Ferritin 348 NG/ML (8-252) Red Blood Count 3.23 MIL/MM3 (4.00-5.30) Mean Corpuscular Hemoglobin 26.8 PG (27.0-34.0) Mean Platelet Volume 6.4 FL (7.0-11.0) Neutrophils (%) (Auto) 76.1 % (16.0-70.0) PE at Discharge GENERAL: Well-developed, well-nourished, in no acute distress. alert and orientated HEENT: Head is normocephalic without any lesions or masses noted. Facial features are symmetric. Eyes: Extraocular muscles are intact. Conjunctivae were clear. NECK: Supple without any masses. Trachea midline no deviation. No JVD, CARDIAC: Regular rhythm, regular rate. S1/S2 are heard. No murmurs gallops or rubs. LUNGS: Clear to auscultation bilaterally. No wheeze, rhonchi or rales. No use of accessory muscles on inspiration or expiration. ABDOMEN: Soft, nontender. Nondistended. Bowel sounds heard in all 4 quadrants. No organomegaly or masses. Negative rebound, negative guarding EXTREMITIES: No edema, pulses are equal bilaterally. No cyanosis or clubbing NEUROLOGY: Mood and affect appear appropriate. Cranial nerves II through XII grossly intact. Moving all extremities, speech is clear Hospital Course The patient was admitted. She was transfused. Hemoglobin remained stable around 8.4. Endoscopy showed normal esophagus, stomach and duodenum. Colonoscopy showed 3 polyps which were removed via snare. Pathology is pending. There was no active bleeding in the colon. Outpatient capsule endoscopy is recommended by Dr. Simpson. Iron level was low and I started her on ferrous sulfate supplementation. The patient was evaluated by physical therapy. She remains slightly with generalized weakness. We will arrange home health care. She is to follow-up with GI in 2 weeks and with her primary care physician Dr. Coyne in 1 week. Patient was instructed to monitor her stool for any bright red blood or dark stools that are tarry in consistency. She was educated that iron can cause dark stools. Also educated to take Metamucil daily. Pt Condition on Discharge: Stable Discharge Disposition: Disch w/ Home Health Serv Discharge Time: > 30 minutes Discharge Instructions DIET: Follow Instructions for: As Tolerated, No Restrictions Activities you can perform: Regular-No Restrictions Follow up Referrals: Gastroenterology - 2 Weeks with Jonah Simpson MD PCP Follow-up - 1 Week with John Coyne MD New Medications: Ferrous Sulfate (Ferrous Sulfate) 325 Mg Tab 325 MG PO BID@12,17 Build Red Blood Cells #60 TAB Continued Medications: Doxazosin (Doxazosin) 2 Mg Tab 2 MG PO BID #60 Ref 0 TAB Lisinopril (Lisinopril) 40 Mg Tab 40 MG PO DAILY Blood Pressure Management #30 Ref 0 TAB Metoprolol Tartrate (Metoprolol Tartrate) 50 Mg Tab 50 MG PO DAILY #30 Ref 0 TAB Multiple Vitamins W/ Minerals (Preservision Areds 2) 1 Cap 1 CAP PO BID Nutritional Supplement Ref 0 CAP Simvastatin (Simvastatin) 80 Mg Tab 80 MG PO DAILY Cholesterol Management #30 Ref 0 TAB Etelvina King MD Aug 10, 2016 09:50
[2016-08-10] MEDS ORDERED: FERROUS SULFATE 325 MG (65 MG ELEMENTAL IRON) TAB PO SCH (12:00)
== END 2016-08-10 11:37 | disposition home or self-care (01) | DRG 378 ==
LOC: PHED 14:08 → PHEDA 15:42 → PH3B 17:11
PROVIDERS: ADMIT Family Medicine; ATTEND Family Medicine
PROC: 0DBK8ZX Excision of Ascending Colon, Via Natural or Artificial Opening Endoscopic, Diagnostic (ICD-10-PCS; 2016-08-08)
PROC: 0DBN8ZX Excision of Sigmoid Colon, Via Natural or Artificial Opening Endoscopic, Diagnostic (ICD-10-PCS; principal; 2016-08-08 07:10)
PROC: 0DBL8ZX Excision of Transverse Colon, Via Natural or Artificial Opening Endoscopic, Diagnostic (ICD-10-PCS; 2016-08-08 07:10)
DX: K92.1 Melena (principal); D62 Acute posthemorrhagic anemia; E11.9 Type 2 diabetes mellitus without complications; I15.9 Secondary hypertension, unspecified; E78.5 Hyperlipidemia, unspecified; D12.2 Benign neoplasm of ascending colon; Z85.118 Personal history of other malignant neoplasm of bronchus and lung; Z85.820 Personal history of malignant melanoma of skin; K64.8 Other hemorrhoids
CPT/HCPCS: 36430; 80048; 80053; 82728; 83540; 83550; 85014; 85018; 85025; 85610; 85730; 86850; 86900; 86901; 86920; 88305; 96365; C9113; J1940; J7030; J7050; P9016

== ENCOUNTER → 2016-08-14 | Outpatient (CLI) | payer MEDICARE ==
[~2016-08-14] MED LIST changes: -DOXA1 PO; +DOXA1TAB35 PO; -EYECAP; +FERR325T PO; +HYDR-3516 PO; +MEGE20TA PO; +PRESCAP5 PO; -RIVA15 PO; +SIMV80TA PO; -ZOCO80TA PO
[2016-08-14 16:08] LABS: HEMATOCRIT 25.5 % (35.0-46.0); MEAN CORPUSCULAR HEMOGLOBIN 28.2 PG (27.0-34.0); PLATELET COUNT 268 TH/MM3 (150-450); RED BLOOD COUNT 3.08 MIL/MM3 (4.00-5.30); RED CELL DISTRIBUTION WIDTH 15.9 % (11.6-17.2); REVIEW FLAG FINAL; WHITE BLOOD COUNT 7.5 TH/MM3 (4.0-11.0)
== END ==
LOC: PLAB 14:28
PROVIDERS: ATTEND Family Medicine
DX: D64.9 Anemia, unspecified (principal)
CPT/HCPCS: 36415; 85027

== ENCOUNTER → 2016-08-20 | Outpatient (CLI) | payer MEDICARE ==
[2016-08-20 15:57] LABS: HEMATOCRIT 24.7 % (35.0-46.0); MEAN CORPUSCULAR HEMOGLOBIN 28.4 PG (27.0-34.0); MEAN CORPUSCULAR HGB CONC 33.8 % (32.0-36.0); PLATELET COUNT 260 TH/MM3 (150-450); RED BLOOD COUNT 2.94 MIL/MM3 (4.00-5.30); RED CELL DISTRIBUTION WIDTH 16.7 % (11.6-17.2); REVIEW FLAG FINAL
== END ==
LOC: PLAB 10:00
PROVIDERS: ATTEND Family Medicine
DX: D64.9 Anemia, unspecified (principal)
CPT/HCPCS: 36415; 85027

== ENCOUNTER → 2016-09-07 | Outpatient (CLI) | payer MEDICARE ==
[2016-09-07 13:07] LABS: HEMATOCRIT 23.5 % (35.0-46.0); MEAN CELL VOLUME 82.8 FL (80.0-100.0); MEAN CORPUSCULAR HEMOGLOBIN 26.9 PG (27.0-34.0); MEAN CORPUSCULAR HGB CONC 32.5 % (32.0-36.0); PLATELET COUNT 295 TH/MM3 (150-450); RED BLOOD COUNT 2.84 MIL/MM3 (4.00-5.30); RED CELL DISTRIBUTION WIDTH 17.7 % (11.6-17.2); WHITE BLOOD COUNT 7.7 TH/MM3 (4.0-11.0)
[2016-09-07 13:31] LABS: REVIEW FLAG FINAL
== END ==
LOC: PLAB 08:25
PROVIDERS: ATTEND Family Medicine
DX: D64.9 Anemia, unspecified (principal)
CPT/HCPCS: 36415; 85027

== ENCOUNTER → 2016-09-19 | Outpatient (CLI) | payer MEDICARE ==
[2016-09-19 13:42] LABS: HEMATOCRIT 30.3 % (35.0-46.0); MEAN CELL VOLUME 81.7 FL (80.0-100.0); MEAN CORPUSCULAR HEMOGLOBIN 25.8 PG (27.0-34.0); MEAN CORPUSCULAR HGB CONC 31.5 % (32.0-36.0); PLATELET COUNT 297 TH/MM3 (150-450); RED BLOOD COUNT 3.71 MIL/MM3 (4.00-5.30); RED CELL DISTRIBUTION WIDTH 16.8 % (11.6-17.2); REVIEW FLAG FINAL; WHITE BLOOD COUNT 5.7 TH/MM3 (4.0-11.0)
== END ==
LOC: PLAB 07:39
PROVIDERS: ATTEND Family Medicine
DX: D64.9 Anemia, unspecified (principal)
CPT/HCPCS: 36415; 85027

== ENCOUNTER → 2016-10-01 | Outpatient (CLI) | payer MEDICARE ==
[2016-10-01 11:21] LABS: HEMATOCRIT 29.5 % (35.0-46.0); MEAN CELL VOLUME 78.3 FL (80.0-100.0); MEAN CORPUSCULAR HEMOGLOBIN 25.5 PG (27.0-34.0); MEAN CORPUSCULAR HGB CONC 32.6 % (32.0-36.0); PLATELET COUNT 416 TH/MM3 (150-450); RED BLOOD COUNT 3.77 MIL/MM3 (4.00-5.30); RED CELL DISTRIBUTION WIDTH 17.3 % (11.6-17.2); REVIEW FLAG FINAL
== END ==
LOC: PLAB 09:47
PROVIDERS: ATTEND Family Medicine
DX: D64.9 Anemia, unspecified (principal)
CPT/HCPCS: 36415; 85027

== ENCOUNTER 2016-10-16 09:34 | Day surgery (SDC) | payer MEDICARE ==
[~2016-10-16 09:34] MED LIST changes: -HYDR-3516 PO; -MEGE20TA PO
[2016-10-16 10:34] VITALS: BP 136/72; PULSE 76; RESP 16; TEMP 97; O2SAT 99
[2016-10-16 11:10] VITALS: BP 165/85; PULSE 88; RESP 16; TEMP 98.1; O2SAT 97
[2016-10-16] MEDS ORDERED: LIDOCAINE HCL 1% PF 30 ML VIAL ONE (11:20)
[2016-10-16 11:30] VITALS: BP 148/65; PULSE 88; RESP 16; O2SAT 97
--- NOTE | 2016-10-16 13:03 | RADRPT ---
EXAM DATE/TIME: 10/16/2016 10:29 [facility] COMPARISON: No previous studies available for comparison. EXTERNAL COMPARISON: [facility], PET/CT - TUMOR WHOLE BODY, Sep 27 2016 INDICATIONS : Right thyroid mass/nodule. MEDICAL HISTORY : Carcinoma, lung. Hypertension. Hypercholesterolemia. Melanoma. Diabetes. SURGICAL HISTORY : Hysterectomy. Right groin mass excision. Cataract. Left top lobe of lung. Melanoma removal. Neck guerrero rgery. ENCOUNTER: Initial ACUITY: 1 month PAIN SCORE: 3/10 LOCATION: Right neck ORGAN: Right thyroid lobe SPECIMENS: Three fine needle aspirate(s) submitted for pathologic evaluation. DEVICE: 22 gauge needle Post procedure scanning reveals no hematoma or other complication. The possibility does exist that the tissue obtained will be non-diagnostic. If the sample is non-ana gnostic a repeat biopsy or surgical biopsy may need to be performed. TECHNIQUE: 1. Ultrasound guidance for needle biopsy. 2. Needle biopsy. The risks, benefits, and alternatives to ultrasound guided needle biopsy were explained to the patien t in detail including the risk of bleeding and infection. Written and verbal informed consent was ob tained. With the patient on the ultrasound table, images were obtained. Overlying skin was prepped and drape d in the usual sterile fashion and Lidocaine was utilized as a local anesthetic. A needle was advanced into the large mass along the right lower lobe and the number of specimens as a krystal obtained and submitted for pathologic evaluation. The patient tolerated the procedure well and left the ultrasound suite in stable condition. CONCLUSION: Uncomplicated ultrasound guided needle biopsy/aspiration of large mass along the right lower lobe. Sacha Tomas MD on October 16, 2016 at 13:00 Board Certified Radiologist. This report was verified electronically.
== END 2016-10-16 11:45 | disposition home or self-care (01) ==
LOC: HRAD 09:34 → HRIP 09:34 → HRAD 11:45
PROVIDERS: ATTEND Surgery Trauma Surgery
DX: E04.1 Nontoxic single thyroid nodule (principal); I10 Essential (primary) hypertension; E11.9 Type 2 diabetes mellitus without complications; E78.00 Pure hypercholesterolemia, unspecified; Z85.820 Personal history of malignant melanoma of skin
CPT/HCPCS: 10022; 76942; 88172; 88173

== ENCOUNTER → 2016-10-19 | Outpatient (CLI) | payer MEDICARE ==
[~2016-10-19] MED LIST changes: +HYDR-3516 PO; +MEGE20TA PO
[2016-10-19 13:18] LABS: MEAN CELL VOLUME 79.3 FL (80.0-100.0); MEAN CORPUSCULAR HEMOGLOBIN 24.8 PG (27.0-34.0); MEAN CORPUSCULAR HGB CONC 31.2 % (32.0-36.0); PLATELET COUNT 322 TH/MM3 (150-450); RED BLOOD COUNT 4.16 MIL/MM3 (4.00-5.30); RED CELL DISTRIBUTION WIDTH 18.1 % (11.6-17.2); WHITE BLOOD COUNT 10.5 TH/MM3 (4.0-11.0)
[2016-10-19 13:19] LABS: REVIEW FLAG FINAL
[2016-10-19 13:48] LABS: ALKALINE PHOSPHATASE 114 U/L (45-117); ALT (GPT) 8 U/L (10-53); ANION GAP 11 MEQ/L (5-15); AST (GOT) 14 U/L (15-37); BICARBONATE 28.1 MEQ/L (21.0-32.0); BLOOD UREA NITROGEN 12 MG/DL (7-18); CHLORIDE 95 MEQ/L (98-107); GLOMERULAR FILTRATION RATE 61 ML/MIN (>89); GLUCOSE,FASTING 131 MG/DL (74-99); HDL CHOLESTEROL 51.3 MG/DL (40.0-60.0); LDL CHOLESTEROL 41 MG/DL (0-99); LDL CHOLESTEROL DIRECT 57 MG/DL (0-99); POTASSIUM 3.7 MEQ/L (3.5-5.1); SODIUM (NA) 134 MEQ/L (136-145); TOTAL BILIRUBIN ADULT 0.4 MG/DL (0.2-1.0)
[2016-10-19 17:45] LABS: HEMOGLOBIN A1a 0.7 %; HEMOGLOBIN A1b 1.4 %; HEMOGLOBIN Ao 85.5 %
== END ==
LOC: PLAB 08:08
PROVIDERS: ATTEND Family Medicine
DX: D64.9 Anemia, unspecified (principal); E11.9 Type 2 diabetes mellitus without complications; E78.2 Mixed hyperlipidemia; I10 Essential (primary) hypertension; I65.29 Occlusion and stenosis of unspecified carotid artery
CPT/HCPCS: 36415; 80053; 80061; 83036; 83721; 85027

== ENCOUNTER 2016-11-07 07:45 | Day surgery (SDC) | payer MEDICARE ==
[2016-11-07] VITALS (7 sets, daily range): BP systolic 106–148; BP diastolic 57–74; PULSE 76–88; RESP 17–20; TEMP 97.9–98.4; O2SAT 95–99
[~2016-11-07] VITALS: Ht 162.6 cm; Wt 70.5 kg
[~2016-11-07 07:45] MED LIST changes: -HYDR-3516 PO; -MEGE20TA PO
[2016-11-07] MEDS ORDERED: HYDR-3516 PO (08:11)
[2016-11-07] MEDS ORDERED: MEGE20TA PO (08:11)
[2016-11-07] MEDS ORDERED: SODIUM CHLOR 0.9% 1000 ML IV SCH (08:30)
[2016-11-07 09:07] LABS: APTT (PATIENT) 27.8 SEC (24.3-30.1); PROTHROMBIN TIME - PATIENT 11.4 SEC (9.8-11.6)
[2016-11-07] MEDS ORDERED: LIDOCAINE HCL 1% 20 ML VIAL ONE (10:09)
[2016-11-07] MEDS ORDERED: fentaNYL CITRATE 250 MCG/5 ML AMP ONE (10:25)
[2016-11-07] MEDS ORDERED: MIDAZOLAM HCL 5 MG/5 ML VIAL ONE (10:25)
--- NOTE | 2016-11-07 13:48 | RADRPT ---
EXAM DATE/TIME: 11/07/2016 10:39 This report includes an Addendum and supersedes previous reports for this exam. [facility] COMPARISON: No previous studies available for comparison. INDICATIONS : Right lung mass. SEDATION TIME: 30 minutes BIOPSY SITE: Right lung. MEDICATION(S): 1.) 2 mg midazolam (Versed) IV 2.) 100 mcg fentanyl (Sublimaze) IV DEVICE(S): 1.) 18 gauge Tyler blunt needle 2.) 20 gauge Temno core biopsy needle MEDICAL HISTORY : Carcinoma, lung. Diabetes mellitus type 2. Hypertension. Malignant melanoma. SURGICAL HISTORY : Appendectomy. Cholecystectomy. Hysterectomy. ENCOUNTER: Initial ACUITY: 1 day PAIN SCORE: 0/10 LOCATION: chest A total of four core specimen(s) were obtained and sent to the laboratory for pathologic evaluation. PROCEDURE: 1. CT guided lung biopsy. Prior to the procedure informed consent was obtained. Any appropriate prior imaging studies were rev iewed. Using automated exposure control and adjustment of the mA and/or kV according to patient size, radiation dose was kept as low as reasonably achievable to obtain optimal diagnostic quality images. The site was prepped in a sterile fashion. Full sterile technique was used, including cap, mask, filiberto rile gloves and gown and a large sterile sheet. Hand hygiene and 2% chlorhexidine and/or betadine/al cohol prep was utilized per protocol for cutaneous antisepsis. The skin and subcutaneous tissues wer e infiltrated with local anesthetic solution. Under CT guidance 18 gauge blunt needle was placed down to the margin of the lesion and 4 cores obtai devika. Follow-up CT scan reveals no pneumothorax. Conscious sedation was performed with the prescribed dosages and duration as above in the presence of an independent trained radiology nurse to assist in the monitoring of the patient. EKG and oximetry remained stable throughout the procedure. The patient tolerated the procedure well and there were no complications. The patient was sent to Radiology Outpatient Unit in stable condition. CONCLUSION: Uncomplicated CT guided biopsy. Nodular opacities are now seen in the left lung as well. Mason Padgett MD FACR on November 07, 2016 at 13:45 Board Certified Radiologist. This report was verified electronically. ADDENDUM: Biopsy was not diagnostic of malignancy. Given the history and appearance this is most likely malign ant process. Findings were discussed with Dr. Portillo. Mason Padgett MD FACR on November 09, 2016 at 8:00 Board Certified Radiologist. This report was verified electronically.
--- NOTE | 2016-11-07 14:35 | RADRPT ---
EXAM DATE/TIME: 11/07/2016 13:34 [facility] COMPARISON: No previous studies available for comparison. INDICATIONS : Post right lung biopsy. MEDICAL HISTORY : Carcinoma, lung. Diabetes mellitus type 2. Hypertension. Malignant melanoma. SURGICAL HISTORY : Appendectomy. Cholecystectomy. Hysterectomy. ENCOUNTER: Initial ACUITY: 1 day PAIN SCORE: 0/10 LOCATION: Right lung. FINDINGS: A single frontal expiratory view of the chest was performed. The lungs are symmetrically aerated and clear. No evidence of pneumothorax. Right lung mass is again noted. Mediastinal structures are in the midline. The cardio-mediastinal contours and bronchopulmonary markings are unremarkable for an expiratory exam . Osseous structures are intact. CONCLUSION: There is no pneumothorax. Mason Padgett MD FACR on November 07, 2016 at 14:30 Board Certified Radiologist. This report was verified electronically.
== END 2016-11-07 14:53 | disposition home or self-care (01) ==
LOC: HRAD 07:45 → HRIP 07:45 → HRAD 14:53
PROVIDERS: ATTEND Surgery Trauma Surgery
DX: J98.4 Other disorders of lung (principal); I10 Essential (primary) hypertension; E11.9 Type 2 diabetes mellitus without complications; E78.5 Hyperlipidemia, unspecified; Z85.820 Personal history of malignant melanoma of skin; Z85.118 Personal history of other malignant neoplasm of bronchus and lung; C73 Malignant neoplasm of thyroid gland; D50.9 Iron deficiency anemia, unspecified; R91.8 Other nonspecific abnormal finding of lung field
CPT/HCPCS: 32405; 71010; 77012; 85610; 85730; 87015; 87070; 87102; 87116; 87205; 87206; 88305; 88333; J2250; J3010; J7030; 77295; 77300; 77334